=== PATIENT | male | born 1995 | race African-American/Black ===

== ENCOUNTER 2019-01-17 12:52 | Emergency (ER) | payer OTHER ==
[~2019-01-17] VITALS: Ht 185.4 cm; Wt 88.0 kg
[2019-01-17 13:06] VITALS: BP 151/100
--- NOTE | 2019-01-17 13:07 | NUR ---
ARRIVAL PATIENT ARRIVED TO ED4 AMBULATORY, C/O OF ASTHMA SYMPTOMS SINCE LAST NIGHT, PATIENT STATES HE RAN OUT OF HIS INHALER AND CAME TO THE ED FOR EVAL.
--- NOTE | 2019-01-17 13:09 | ER.PDOC ---
General Chief Complaint: Dyspnea/Respdistress Stated Complaint: SOB Time seen by MD: 13:00 Source: patient Exam Limitations: no limitations History of Present Illness Timing/Duration: 24 hours Severity: mild Initiating Event: out of meds Associated Symptoms: trouble breathing, shortness of breath, cough Medication Course: PRN Prior symptoms/Treatment: Similar symptoms previous Past Medical History Medical History: asthma Surgical History: no surgical history Social History Smoking: cigarettes Alcohol Use: none Drug Use: none Reviewed Nursing Reviewed: Vital Signs, Abn. Noted All Other Systems: Reviewed and Negative Physical Exam General Appearance: alert, no distress EENT: eyes nml, no nystagmus, ENT nml inspection, pharynx nml Neck: nml inspection, non-tender Respiratory: rhonchi Cardiovascular: Normal Peripheral Pulses, Regular Rate, Rhythm, No Edema, No Gallop, No JVD, No Murmur Abdomen: non-tender, no organomegaly Skin: Normal Color, Warm/Dry Extremities: non-tender, nml ROM, no pedal edema Results/Orders Results/Orders Vital Signs Date Time Temp Pulse Resp B/P (MAP) Pulse Ox O2 Delivery O2 Flow Rate FiO2 01/17/19 13:04 98.3 94 18 97 Room Air 98.3 01/17/19 13:03 98.3 94 18 98.3 Departure Time of Disposition: 13:33 Disposition: 01 HOME, SELF-CARE Impression: Primary Impression: Asthma exacerbation Condition: Stable Duration or Time Spent with Pa: ARNULFO Avalos MD Jan 17, 2019 13:09
[2019-01-17 13:24] VITALS: BP 151/100
== END 2019-01-17 14:03 | disposition home or self-care (01) ==
LOC: ER 12:52
DX: J45.901 Unspecified asthma with (acute) exacerbation (principal); F17.210 Nicotine dependence, cigarettes, uncomplicated
CPT/HCPCS: 99283